=== PATIENT | female | born 1965 | race Caucasian/White ===

== ENCOUNTER 2023-02-21 19:31 | Inpatient (IN) ==
[2023-02-21] MEDS ORDERED: buPROPion SR 200 mg TAB.SR PO ONE (20:49)
[2023-02-21] MEDS ORDERED: Nicotine PATCH 21 MG/24 HR PATCH TRANSDERM ONE (21:19)
[2023-02-21 21:28] LABS: Urine Appearance Cloudy; Urine Bilirubin Negative (Negative); Urine Blood Negative (Negative); Urine Color Yellow; Urine Glucose Negative (Negative); Urine Ketones Negative (Negative); Urine Nitrite Negative (Negative); Urine Protein Negative (Negative); Urine Urobilinogen Negative (Negative)
[2023-02-21 21:31] LABS: Urine Amorphous Crystals Present (Absent); Urine Bacteria 1+ (Absent); Urine Red Blood Cell Absent (Absent); Urine Squamous Epithelial Cell Present (Absent); Urine White Blood Cell Trace(0-5/hpf) (Absent)
[2023-02-21 21:43] LABS: ABS Basophils 0.1 10^3/uL (0.0-0.1); ABS Eosinophils 0.6 10^3/uL (0.0-0.5); ABS Lymphocytes 4.8 10^3/uL (1.0-4.8); ABS Monocytes 1.1 10^3/uL (0.0-0.9); ABS Neutrophils 8.3 10^3/uL (1.5-7.6); ABS Nucleated RBC 0.01 10^3/ul; Eosinophil % 3.9 %; Hematocrit 46.2 % (35-45); Hemoglobin 15.8 g/dL (11.5-14.3); Lymphocyte % 32.3 %; Mean Corpuscular Hemoglobin 31.1 pg (27-33); Mean Corpuscular Hgb Conc 34.3 g/dL (31-36); Mean Corpuscular Volume 90.7 fL (80-97); Mean Platelet Volume 9.7 fL (7.5-11.2); Nucleated Red Blood Cells % 0.1 %/100WBC (0.0-0.8); Platelet Count 306 10^3/uL (150-450); Red Blood Count 5.09 10^6/uL (3.63-4.92); Red Cell Distribution Width 14.8 % (12-17); White Blood Count 14.9 10^3/uL (3.8-11.8)
[2023-02-21 21:51] LABS: Urine Benzodiazepine Screen None Detected (None Detect); Urine Cannabinoids Screen Presumptive Positive (None Detect); Urine Opiates Screen None Detected (None Detect)
[2023-02-21 22:18] LABS: TSH Ultra Thyroid Stim Horm 2.21 mcIU/mL (0.34-5.60)
[2023-02-21 23:03] LABS: ALT 16 U/L (7-52); AST 38 U/L (13-39); Acetaminophen < 15 mcg/mL; Albumin 4.4 g/dL (3.2-5.2); Albumin/Globulin Ratio 1.3 (1-3); Alcohol, S 32 mg/dL (<13); Alkaline Phosphatase 98 U/L (35-149); Anion Gap 11 mmol/L (2-16); Blood Urea Nitrogen 15 mg/dL (6-24); CO2 Carbon Dioxide 24 mmol/L (22-32); Calcium 9.9 mg/dL (8.6-10.3); Chloride 104 mmol/L (101-111); Creatinine, Serum 0.93 mg/dL (0.51-0.95); Globulin 3.4 g/dL (2-4); Glucose 94 mg/dL (70-100); Salicylate < 2.50 mg/dL (<30); Sodium 139 mmol/L (135-145); Total Bilirubin 0.3 mg/dL (0.2-1.0); Total Protein 7.8 g/dL (6.4-8.9); eGFR CKD-EPI 70.8 (>60)
[2023-02-22] MEDS ORDERED: Al Hydrox/Mg Hydrox/Simet LIQ 30 ML UDC PO PRN (05:39)
[2023-02-22] MEDS: Nicotine PATCH 21 MG/24 HR PATCH TRANSDERM SCH (09:53)
[2023-02-22] MEDS: Vitamin THERAPEUTIC TAB PO SCH (09:53)
[2023-02-22] MEDS: Venlafaxine XR 75 mg PO SCH (12:48)
[2023-02-22] MEDS: buPROPion SR 100 mg TAB.SR PO SCH ×2 (12:49→21:31)
[2023-02-22] MEDS ORDERED: Influenza vaccine *QUAD* *2023-24* 0.5 ML SYRINGE IM ONE (15:00)
[2023-02-23] MEDS: Venlafaxine XR 75 mg PO SCH (08:56)
[2023-02-23] MEDS: Nicotine PATCH 21 MG/24 HR PATCH TRANSDERM SCH (08:56)
[2023-02-23] MEDS: Vitamin THERAPEUTIC TAB PO SCH (08:57)
[2023-02-23] MEDS: buPROPion SR 100 mg TAB.SR PO SCH ×2 (08:57→20:23)
[2023-02-23] MEDS: Nicotine GUM 2MG FRUIT FLAVOR PO PRN (17:31)
[2023-02-24 08:26] LABS: HDL Cholesterol 44.2 mg/dL
[2023-02-24] MEDS: Vitamin THERAPEUTIC TAB PO SCH (08:44)
[2023-02-24] MEDS: buPROPion SR 100 mg TAB.SR PO SCH ×2 (08:44→20:30)
[2023-02-24] MEDS: Venlafaxine XR 75 mg PO SCH (08:45)
[2023-02-24] MEDS: Nicotine PATCH 21 MG/24 HR PATCH TRANSDERM SCH (08:45)
[2023-02-24] MEDS: Nicotine GUM 2MG FRUIT FLAVOR PO PRN ×2 (12:30→20:31)
[2023-02-25] MEDS: Nicotine PATCH 21 MG/24 HR PATCH TRANSDERM SCH (09:41)
[2023-02-25] MEDS: buPROPion SR 100 mg TAB.SR PO SCH (09:43)
[2023-02-25] MEDS: Vitamin THERAPEUTIC TAB PO SCH (09:43)
[2023-02-25] MEDS: Venlafaxine XR 75 mg PO SCH (09:43)
[2023-02-25 10:18] VITALS: BP 143/91
== END 2023-02-25 10:30 | disposition home or self-care (01) | DRG 751 ==
LOC: ED 19:31 → BSU 02-22 05:51
PROVIDERS: ADMIT Psychiatry & Neurology Psychiatry; ATTEND Psychiatry & Neurology Psychiatry